=== PATIENT | male | born 1955 | race Caucasian/White ===

== ENCOUNTER → 2017-01-09 | Outpatient (CLI) | payer OTHER ==
[~2017-01-09] MED LIST: BACTRIM DS TAB1 EACH PO; CYMBALTA60 MG PO; DOXEPIN HCL50 MG PO; FISH OIL 1,0001 EACH PO; GLUCOPHAGE XR500 MG PO; JANUVIA 100 MG100 MG PO; LIPITOR TAB 2020 MG PO; LISINOPRIL5 MG PO; NORCO 10-325 T1 EACH PO; NORCO 5-325 TA1 EACH PO; TAMSULOSIN HCL0.4 MG PO; VITAMIN B12-FO1 EACH PO
== END ==
LOC: KOH-I 12:58
DX: M25.562 Pain in left knee (principal); R20.8 Other disturbances of skin sensation; M25.862 Other specified joint disorders, left knee; M23.42 Loose body in knee, left knee; F17.290 Nicotine dependence, other tobacco product, uncomplicated; R05 Cough; Z76.0 Encounter for issue of repeat prescription; E66.9 Obesity, unspecified; Z79.891 Long term (current) use of opiate analgesic; Z68.36 Body mass index [BMI] 36.0-36.9, adult
CPT/HCPCS: 73560

== ENCOUNTER → 2017-03-09 | Outpatient (CLI) | payer OTHER ==
[2017-03-09 08:32] LABS: HEMOGLOBIN 15.9 gm/dl (14.0-17.5); RED BLOOD COUNT 5.02 M/UL (4.20-5.50); WHITE BLOOD COUNT 7.6 K/UL (4.5-11.0)
[2017-03-09 08:48] LABS: BUN/CREATININE RATIO 32 (0-10)
== END ==
LOC: OPSV2 07:30
PROVIDERS: Orthopaedic Surgery
DX: Z01.810 Encounter for preprocedural cardiovascular examination (principal); Z01.812 Encounter for preprocedural laboratory examination; M23.42 Loose body in knee, left knee
CPT/HCPCS: 36415; 80048; 83036; 85025; 93005

== ENCOUNTER → 2017-03-16 | Day surgery (SDC) | payer OTHER ==
[~2017-03-16] VITALS: Ht 182.9 cm; Wt 123.8 kg
== END | disposition home or self-care (01) ==
LOC: OR 06:47
PROVIDERS: Orthopaedic Surgery
PROC: 0SCD4ZZ Extirpation of Matter from Left Knee Joint, Percutaneous Endoscopic Approach (ICD-10-PCS; principal; 2017-03-16 08:15)
DX: M23.42 Loose body in knee, left knee (principal); M17.12 Unilateral primary osteoarthritis, left knee; E11.9 Type 2 diabetes mellitus without complications; I10 Essential (primary) hypertension; E78.5 Hyperlipidemia, unspecified; J44.9 Chronic obstructive pulmonary disease, unspecified; F17.290 Nicotine dependence, other tobacco product, uncomplicated; Z79.899 Other long term (current) drug therapy; Z79.84 Long term (current) use of oral hypoglycemic drugs
CPT/HCPCS: 82962; J0171; J0690; J1100; J1815; J1885; J2250; J2274; J2310; J2405; J3010; J3301; J7030; J7120

== ENCOUNTER 2017-03-29 00:57 | Inpatient (IN) | payer OTHER ==
[~2017-03-29 00:57] MED LIST changes: -BACTRIM DS TAB1 EACH PO
[2017-03-29 02:13] LABS: HEMOGLOBIN 13.7 gm/dl (14.0-17.5); RED BLOOD COUNT 4.35 M/UL (4.20-5.50); WHITE BLOOD COUNT 15.6 K/UL (4.5-11.0)
[2017-03-29 02:30] LABS: BUN/CREATININE RATIO 20 (0-10)
[2017-03-29 06:29] LABS: RED BLOOD COUNT 4.15 M/UL (4.20-5.50); WHITE BLOOD COUNT 13.7 K/UL (4.5-11.0)
[2017-03-29 06:46] LABS: BUN/CREATININE RATIO 19 (0-10)
[2017-03-30 04:53] LABS: HEMOGLOBIN 12.7 gm/dl (14.0-17.5); RED BLOOD COUNT 4.11 M/UL (4.20-5.50)
[2017-03-30 04:59] LABS: WHITE BLOOD COUNT 5.8 K/UL (4.5-11.0)
[2017-03-30 05:22] LABS: BUN/CREATININE RATIO 17 (0-10)
[2017-03-31 05:52] LABS: HEMOGLOBIN 12.8 gm/dl (14.0-17.5); RED BLOOD COUNT 4.1 M/UL (4.20-5.50)
[2017-03-31] MEDS ORDERED: BACTRIM DS TAB1 EACH PO (17:51)
== END 2017-03-31 18:40 | disposition home or self-care (01) | DRG 690 ==
LOC: ER1 00:57 → ZEROF 04:19 → M/S 04:19
PROVIDERS: Family Medicine; Internal Medicine; ADMIT Internal Medicine
DX: N30.00 Acute cystitis without hematuria (principal); D64.9 Anemia, unspecified; E11.65 Type 2 diabetes mellitus with hyperglycemia; E11.40 Type 2 diabetes mellitus with diabetic neuropathy, unspecified; E78.5 Hyperlipidemia, unspecified; I10 Essential (primary) hypertension; F17.220 Nicotine dependence, chewing tobacco, uncomplicated; F15.10 Other stimulant abuse, uncomplicated; I95.9 Hypotension, unspecified; N39.498 Other specified urinary incontinence; B96.89 Other specified bacterial agents as the cause of diseases classified elsewhere; Z79.899 Other long term (current) drug therapy; Z79.84 Long term (current) use of oral hypoglycemic drugs
CPT/HCPCS: 36415; 80048; 80053; 81001; 82962; 83605; 85025; 85027; 86140; 87040; 87077; 87086; 87186; 93005; 96374; 99284; J0696; J7030; J7050